=== PATIENT | male | born 1970 | race Caucasian/White ===

== ENCOUNTER → 2019-06-24 | Outpatient (CLI) | payer BC, OTHER ==
--- NOTE | 2019-06-24 16:22 | KCIC ---
MR of the left knee HISTORY: Chronic left knee pain anterior and deep in the joint. TECHNIQUE: Routine multiplanar sequences are obtained. FINDINGS: No evidence of medial meniscal tear. No evidence of lateral meniscal tear. Anterior and posterior cruciate ligaments are intact. Medial collateral ligament is intact. Iliotibial band unremarkable. Fibular collateral ligament, biceps femoris tendon and popliteus tendon are intact. Extensor mechanism is intact. Small joint effusion. Moderate to severe chondromalacia of the patellofemoral joint, greater at the patella where there is subchondral edema and cystic change. Mild chondromalacia at the medial joint compartment. No aggressive bone destruction. No evidence of acute fracture. IMPRESSION: 1. Degenerative joint disease, greatest at the patellofemoral joint. 2. No evidence of meniscal tear. Electronically signed by: Jm Steven MD (06/24/2019 4:19 PM) [id number]
== END | disposition home or self-care (01) ==
LOC: KCIC MRI 14:18
PROVIDERS: ATTEND Orthopaedic Surgery
DX: M94.262 Chondromalacia, left knee (principal); M17.12 Unilateral primary osteoarthritis, left knee; M25.462 Effusion, left knee; G89.29 Other chronic pain
CPT/HCPCS: 73721

== ENCOUNTER 2020-01-14 03:15 | Emergency (ER) | payer OTHER ==
[~2020-01-14] VITALS: Ht 188 cm; Wt 104.0 kg
[2020-01-14 03:20] VITALS: BP 146/91
--- NOTE | 2020-01-14 03:55 | PHYS DOC ---
Past Medical History Past Medical History: No Pertinent History Past Surgical History: Other Additional Past Surgical Histo: KNEE SCOPE Smoking Status: Never Smoker Alcohol Use: None Adult General Chief Complaint Chief Complaint: BACK PAIN - NO INJURY HPI HPI 49-year-old male presents to the emergency department with complaints of back pain. Patient describes moving some boxes of records yesterday with increasing spasm to the right side. He denies any numbness or tingling to his lower extremities, denies any difficulty with urination. Patient states he did this something similar last week and that has subsequently resolved however moving boxes last night reconstituted pain. Patient denies any difficulty with urination or difficulty having a bowel movement. Movements make his symptoms worse Review of Systems Review of Systems Constitutional: Denies fever or chills [] Eyes: Denies change in visual acuity, redness, or eye pain [] HENT: Denies nasal congestion or sore throat [] Respiratory: Denies cough or shortness of breath [] Cardiovascular: No additional information not addressed in HPI [] GI: Denies abdominal pain, nausea, vomiting, bloody stools or diarrhea [] Musculoskeletal: right back pain with spasm Integument: Denies rash or skin lesions [] Neurologic: Denies headache, focal weakness or sensory changes [] All other systems were reviewed and found to be within normal limits, except as documented in this note. Current Medications Current Medications Current Medications Medications (Trade) Dose Ordered Sig/[facility] Start Time Stop Time Status Last Admin Dose Admin Ketorolac Tromethamine (Toradol Im) 60 mg 1X ONCE 01/14/20 04:00 01/14/20 04:01 DC 01/14/20 03:56 60 MG Orphenadrine Citrate (Norflex) 60 mg 1X ONCE 01/14/20 04:00 01/14/20 04:01 DC 01/14/20 03:56 60 MG Allergies Allergies Allergies Coded Allergies Type Severity Reaction Last Updated Verified No Known Drug Allergies 01/14/20 No Physical Exam Physical Exam Constitutional: Well developed, well nourished, no acute distress, non-toxic appearance. [] Cardiovascular:Heart rate regular rhythm, no murmur [] Lungs & Thorax: Bilateral breath sounds clear to auscultation [] Abdomen: Bowel sounds normal, soft, no tenderness, no masses, no pulsatile masses. [] Skin: Warm, dry, no erythema, no rash. [] Back: muscle spasm appreciated, no CVA tenderness Extremities: No tenderness, no edema, no numbness or tingling [] Neurologic: Alert and oriented X 3, no focal deficits noted. [] Psychologic: Affect normal, judgement normal, mood normal. [] Current Patient Data Vital Signs Vital Signs Date Time Temp Pulse Resp B/P (MAP) Pulse Ox O2 Delivery O2 Flow Rate FiO2 01/14/20 03:20 98.5 71 22 146/91 (109) 99 Room Air 98.5 EKG EKG [] Radiology/Procedures Radiology/Procedures [] Course & Med Decision Making Course & Med Decision Making Pertinent Labs and Imaging studies reviewed. (See chart for details) [] 49-year-old male presents to the emergency department with complaints of back pain. Patient describes moving some boxes of records yesterday with increasing spasm to the right side. He denies any numbness or tingling to his lower extremities, denies any difficulty with urination. Patient states he did this something similar last week and that has subsequently resolved however moving boxes last night reconstituted pain. Patient denies any difficulty with urination or difficulty having a bowel movement. Movements make his symptoms worse Dragon Disclaimer Dragon Disclaimer This electronic medical record was generated, in whole or in part, using a voice recognition dictation system. Departure Departure Impression: Primary Impression: Back pain Additional Impression: Muscle spasm Disposition: 01 HOME, SELF-CARE Condition: IMPROVED Referrals: VIKY WRAY (PCP) Patient Instructions: Back Pain, Adult, [id number] Additional Instructions: Norflex and Toradol given in ER No imaging given no acute injury Flexeril rx provided upon discharge Tylenol/Motrin as needed Return to the ER with difficulty urinating/bowel movement, numbness or tingling bilateral lower ext Scripts Cyclobenzaprine Hcl (CYCLOBENZAPRINE HCL) 10 Mg Tablet 1 TAB PO TID PRN for MUSCLE SPASMS, #21 TAB Prov: ANUPAMA TINEO MD 01/14/20 Problem Qualifiers Primary Impression: Back pain Back pain location: low back pain Chronicity: unspecified Back pain laterality: right Sciatica presence: without sciatica Qualified Codes: M54.5 - Low back pain ANUPAMA TINEO MD Jan 14, 2020 03:55
[2020-01-14] MEDS ORDERED: ORPHENADRINE CITRATE 60 MG/2 ML VIAL. IM ONE (04:00)
[2020-01-14] MEDS ORDERED: KETOROLAC 60 MG/2 ML VIAL. IM ONE (04:00)
[2020-01-14] MEDS ORDERED: CYCL10TA2 PO (04:11)
== END 2020-01-14 04:22 | disposition home or self-care (01) ==
LOC: ER 03:15
DX: M54.5 Low back pain (principal); M62.838 Other muscle spasm; Z98.890 Other specified postprocedural states
CPT/HCPCS: 96372; 99284; J1885; J2360